=== PATIENT | female | born 2000 | race Caucasian/White ===

== ENCOUNTER 2024-03-01 22:47 | Emergency (ER) | payer OTHER, SELFPAY ==
[2024-03-01 22:50] VITALS: BP 117/85
--- NOTE | 2024-03-01 23:00 | ED.GENMED ---
History of Present Illness
General
Chief Complaint: Blood and Body Fluid Exposure
Source: patient
Exam Limitations: none
Time Seen by Provider: 03/01/24 22:56
History of Present Illness
History of Present Illness:
See MDM
Past History
Past History
ED Past Medical History: None
ED Past Surgical History: None
Social History
Tobacco: Non-smoker
Alcohol: None
Phy Exam
Physical Exam
Physical Exam:
See MDM
Course
Orders/Labs/Results
Orders:
Orders
03/01/24 22:56
HIV Combo Urgent
Hepatitis B Surface Antibody Urgent
Hepatitis B Surface Antigen Urgent
Hepatitis C Antibody Urgent
Vital Signs
Initial and Last Documented VS:
Initial Vital Signs
Temp Pulse Resp BP Pulse Ox
97.4 F 102 18 117/85 99
03/01/24 22:50 03/01/24 22:50 03/01/24 22:50 03/01/24 22:50 03/01/24 22:50
Last Documented Vital Signs
Temp Pulse Resp BP Pulse Ox
97.4 F 102 18 117/85 99
03/01/24 22:50 03/01/24 22:50 03/01/24 22:50 03/01/24 22:50 03/01/24 22:50
MDM/Problems Addressed
Differential Diagnosis Includes:
HPI and MDM Narrative:
23-year-old female presenting with needlestick injury to her left thumb. 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 She gave the patient insulin and then tried to The needle and she accidentally stuck her left thumb. There was a
pinprick with some blood. She immediately washed it. She came to the emergency department for evaluation injury and blood exposure.
As far as patient is aware, the source patient does not have hepatitis or HIV. We did discuss that insulin needle is a very small bore needle and it was shared decision making to refrain from prophylactic antivirals given that the source patient
can have blood work obtained easily.
Physical exam
General: Well appearing and non-toxic
HEENT: protecting airway
Neck: appears supple
CV: No evidence of cyanosis
Resp: No accessory muscle use
Abd: Non-distended
Extremities: No deformities
Neuro: alert
Psych: Normal affect
Skin: Small pinprick injury to left thumb
Problems Addressed including Acute and Chronic Conditions affecting care:
1. Needlestick injury and blood exposure
Acuity: acute
Prognosis: stable
Details: Will obtain hepatitis and HIV testing on patient and nurse catering manager will be made aware to have source patient tested as well
Differential Diagnosis (but not limited to): Needlestick injury, blood exposure
Drug therapy (if applicable): OTC meds, please see d/c instruction regarding Rx drugs
Amount and/or Complexity of Data Reviewed
Clinical info obtained from: Patient
External data reviewed: N/A
Labs I independently reviewed (but not limited to): N/A
Radiology: N/A
Pulse Ox: not hypoxic
EKG independently reviewed: N/A
Terminologist: N/A
Critical Care: N/A
Risk of Complication:
Social Determinants of health: Good social support
Discussed with other providers: N/A
Escalation of Care includes Admit/Obs: After being observed in the Emergency Department, pt stable to go back to work
Occasional wrong word or 'sound a like' substitutions may have occurred due to the inherent limitations of voice recognition software. Read the chart carefully and recognize, using context, where substitutions have occurred.
*Critical Care Note
Total Time (30-74mins, 75-104mins- exclusive of procedures): Not Applicable
ED Attending Note
-
Portions of this chart may have been created with voice recognition software.� Occasional wrong word or��sound alike� substitutions may have occurred due to the inherent limitations of voice recognition software.
Discharge Plan
Departure
Patient Disposition: Home (Routine Discharge)
Date of Disposition: 03/01/24
Time of Disposition: 23:00
Patient with high blood pressure during this ER visit?: No
Discharge Problem:
Needle stick injury of finger
Stand Alone Forms: Bl/Fluid Consent/Declination, Blood Body/Fluid Exposure
Activity Restrictions/Additional Instructions:
Please follow-up with occupational health. Please return if you notice any evidence of infection of your finger.
Interventions
Interventions:
*Risk Screen - Suicide Last Done: 03/01/24 22:50
*Neglect/Abuse Screening Last Done: 03/01/24 22:50
*ED COVID-19 Vaccine History Last Done: 03/01/24 22:53
Discharge Date and Time
Print Language: [place]
[2024-03-02 04:41] LABS: Hepatitis B Surface Antigen Negative (Negative)
[2024-03-02 04:59] LABS: Hepatitis B Surface Antibody Negative; Hepatitis C Antibody Negative (Negative)
[2024-03-02 05:05] LABS: HIV Combo Negative (Negative)
== END 2024-03-01 23:07 | disposition home or self-care (01) ==
LOC: EMR 22:47
PROVIDERS: EMERGENCY PHYSICIAN Student in an Organized Health Care Education/Training Program; FAMILY PHYSICIAN Physician Assistant Medical
DX: Z77.21 Contact with and (suspected) exposure to potentially hazardous body fluids (principal); W46.0XXA Contact with hypodermic needle, initial encounter; Y99.0 Civilian activity done for income or pay
CPT/HCPCS: 99283; 86706; 86803; 87340; 87389

== ENCOUNTER → 2024-04-25 07:34 | Outpatient (REF) | payer OTHER, SELFPAY ==
[2024-04-25 09:45] LABS: Hepatitis B Surface Antibody Positive
== END ==
LOC: OHS 07:34
PROVIDERS: ATTENDING PHYSICIAN Nurse Practitioner Family
DX: Z23 Encounter for immunization (principal)
CPT/HCPCS: 36415; 86706

== ENCOUNTER 2024-06-04 20:38 | Emergency (ER) | payer SELFPAY ==
[2024-06-04 20:42] VITALS: BP 140/91
--- NOTE | 2024-06-04 21:23 | ED.GENMED ---
History of Present Illness
General
Chief Complaint: Exposure-Chemical
Time Seen by Provider: 06/04/24 21:07
History of Present Illness
History of Present Illness:
TIME OF INITIAL ENCOUNTER: 9 PM
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 The source patient reportedly
was given chemo via Albert earlier today. She tried to flush her eye out earlier but had to some difficulty.
EXAM:
GENERAL: Well appearing in no distress
HEENT: Moist oral mucosa, no significant conjunctival injection
NEUROLOGIC: Excellent strength all extremities, no obvious coordination deficits
PSYCHIATRIC: Appears anxious and up
EXTREMITIES: Nontender, no edema, moves all extremities equally
SKIN: No rash, no lesions
NUMBER AND COMPLEXITY OF PROBLEMS ADDRESSED AT THE ENCOUNTER
� Chronic conditions affecting care: Denies significant past medical history
� Acute Exacerbation and/or Progression of Chronic Illness: This is an acute problem
� Differential Diagnosis includes: Body fluid exposure, saline exposure
AMOUNT AND/OR COMPLEXITY OF DATA TO BE REVIEWED AND ANALYZED
� I performed an independent evaluation of and my interpretation is:
EKG:
CT:
X-rays:
Laboratory Studies: Screening labs pending
Other:
� Review of other/old records: The patient was hep B surface antibody positive in April
� Clinical information was obtained by an independent historian: None needed
� Prescriptions/Medications Considered but not given:
� Further testing considered but not performed:
RISK OF COMPLICATIONS AND/OR MORBIDITY OR MORTALITY OF PATIENT MANAGEMENT
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
� Discussion with other providers:
� Escalation of care including admission/observation vs risk of discharge considered: Her pH is between 7.0 and 7.5. I then used tetracaine and then irrigated the right eye and everted the upper lid. Baseline labs obtained but
she also did have similar labs drawn 3 months ago. I have asked charge nurse to ensure that the supervising nurse did evaluate the source patient
ANY OTHER UPDATES:
Past History
Past History
ED Past Medical History: None
ED Past Surgical History: None
Social History
Tobacco: Non-smoker
Alcohol: None
Phy Exam
Physical Exam
Physical Exam:
See HPI
Course
Orders/Labs/Results
Orders:
Orders
06/04/24 21:46
HIV Combo Urgent
Hepatitis B Surface Antibody Urgent
Hepatitis B Surface Antigen Urgent
Hepatitis C Antibody Urgent
Vital Signs
Initial and Last Documented VS:
Initial Vital Signs
Temp Pulse Resp BP Pulse Ox
36.6 C 98 16 140/91 99
06/04/24 20:42 06/04/24 20:42 06/04/24 20:42 06/04/24 20:42 06/04/24 20:42
Last Documented Vital Signs
Temp Pulse Resp BP Pulse Ox
36.6 C 98 16 140/91 99
06/04/24 20:42 06/04/24 20:42 06/04/24 20:42 06/04/24 20:42 06/04/24 20:42
*Critical Care Note
Total Time (30-74mins, 75-104mins- exclusive of procedures): Not Applicable
ED Attending Note
-
Portions of this chart may have been created with voice recognition software.� Occasional wrong word or��sound alike� substitutions may have occurred due to the inherent limitations of voice recognition software.
Discharge Plan
Departure
Patient Disposition: Home (Routine Discharge)
Date of Disposition: 06/04/24
Time of Disposition: 21:21
Patient with high blood pressure during this ER visit?: Yes
Discharge Problem:
Employee exposure to body fluids
Instructions: Chemical Eye Injury ED
Activity Restrictions/Additional Instructions:
Follow-up with employee health.
Interventions
Interventions:
*Risk Screen - Suicide Last Done: 06/04/24 20:44
*Neglect/Abuse Screening Last Done: 06/04/24 20:44
*ED- Fall Risk Assessment Last Done: 06/04/24 21:57
*ED COVID-19 Vaccine History Last Done: 06/04/24 21:57
*Nursing Disposition Last Done: 06/04/24 21:57
ED-EENT Assessment Last Done: 06/04/24 21:57
ED- Pulmonary Assessment Last Done: 06/04/24 21:57
ED-Skin Assessment Last Done: 06/04/24 21:57
Discharge Date and Time
Discharge Date/Time: 06/04/24 22:16
Print Language: ROMANIAN
[2024-06-05 04:37] LABS: Hepatitis B Surface Antigen Negative (Negative)
[2024-06-05 04:46] LABS: HIV Combo Negative (Negative)
[2024-06-05 04:55] LABS: Hepatitis B Surface Antibody Positive; Hepatitis C Antibody Negative (Negative)
[2024-06-06 08:39] LABS: ALT (SGPT) 17 U/L (0-35); AST (SGOT) 23 U/L (14-36); Albumin 4.9 g/dl (3.5-5.0); Alkaline Phosphatase 70 U/L (38-126); Direct Bilirubin 0.2 mg/dl (0.0-0.4); Total Bilirubin 0.4 mg/dl (0.2-1.3); Total Protein 7.3 g/dl (6.3-8.2)
== END 2024-06-04 22:16 | disposition home or self-care (01) ==
LOC: EMR 20:38
PROVIDERS: EMERGENCY PHYSICIAN Emergency Medicine; FAMILY PHYSICIAN Family Medicine
DX: Z77.21 Contact with and (suspected) exposure to potentially hazardous body fluids (principal); X58.XXXA Exposure to other specified factors, initial encounter; Y92.239 Unspecified place in hospital as the place of occurrence of the external cause; Y99.0 Civilian activity done for income or pay
CPT/HCPCS: 99283; 86706; 86803; 87340; 87389